=== PATIENT | female | born 1985 | race Caucasian/White ===

== ENCOUNTER 2022-06-05 21:51 | Emergency (ER) | payer OTHER ==
[2022-06-05 22:01] VITALS: BP 135/81; PULSE 104; RESP 18; TEMP 97; BMI 35.6
[2022-06-06 00:04] LABS: BASO % 0.5 % (0-2.0); EOS % 1.8 % (0-4.5); HEMATOCRIT 36.2 % (32.4-45.2); HEMOGLOBIN 12.2 GM/dL (10.7-15.3); LYMPH % 20.9 % (8-40); MCHC 33.8 g/dl (32.0-36.0); MEAN CELL VOLUME 79.9 fl (80-96); MEAN PLT VOLUME 7.6 fl (7.5-11.1); MONO % 6.8 % (3.8-10.2); PLATELET COUNT 393 10^3/uL (134-434); RBC 4.53 M/mm3 (3.60-5.2); RDW 14.6 % (11.6-15.6); WHITE BLOOD COUNT 10.5 K/mm3 (4.0-10.0)
[2022-06-06 00:25] LABS: ALBUMIN 3.4 g/dl (3.4-5.0); BLOOD UREA NITROGEN 7.8 mg/dL (7-18); CALCIUM 9.3 mg/dL (8.5-10.1)
[2022-06-06 00:27] LABS: CREATININE 0.5 mg/dL (0.55-1.3)
[2022-06-06 00:29] LABS: BILIRUBIN,TOTAL 0.2 mg/dL (0.2-1); TOT PROT 7.2 g/dl (6.4-8.2)
[2022-06-06 08:44] LABS: EPI CELLS 4 /uL (0-25.1); HYALINE CASTS 1 /uL (0-3.1); PH,URINE 6.5 (5.0-8.0); URINE APPEARANCE CLEAR; URINE BACTERIA 1733 /uL (0-1359); URINE BILIRUBIN NEGATIVE (NEGATIVE); URINE COLOR YELLOW; URINE GLUCOSE (UA) NEGATIVE (NEGATIVE); URINE KETONE NEGATIVE (NEGATIVE); URINE LEUK ESTERASE NEGATIVE (NEGATIVE); URINE NITRITE NEGATIVE (NEGATIVE); URINE PROTEIN NEGATIVE (NEGATIVE); URINE UROBILINOGEN 0.2 mg/dL (0.2-1.0); URINE WBC 41 /uL (0-25.8)
[2022-06-06 08:51] LABS: URINE RBC 25.6 /uL (0-23.9)
== END 2022-06-06 01:47 | disposition home or self-care (01) ==
LOC: JER 21:51
DX: O26.851 Spotting complicating pregnancy, first trimester (principal); Z3A.01 Less than 8 weeks gestation of pregnancy
CPT/HCPCS: 36415; 76817-TC; 80053; 81003; 84702; 85025; 86850; 86900; 86901; 99284-25

== ENCOUNTER 2022-12-28 18:00 | Inpatient (IN) | payer BC, OTHER ==
[2022-12-28] MEDS ORDERED: CITRIC ACID/SODIUM CITRATE 30 ML UNIT-DOSE CUP PO ONE (20:57)
[2022-12-28] MEDS ORDERED: ELECTROLYTE-148 SOLN 1,000 ML IV SCH (21:00)
[2022-12-28 21:11] LABS: BASO % 0.4 % (0-2.0); EOS % 0.6 % (0-4.5); HEMATOCRIT 29.7 % (32.4-45.2); HEMOGLOBIN 10.2 GM/dL (10.7-15.3); LYMPH % 21.4 % (8-40); MCH 24.8 pg (25.7-33.7); MCHC 34.2 g/dl (32.0-36.0); MEAN CELL VOLUME 72.7 fl (80-96); MEAN PLT VOLUME 8.7 fl (7.5-11.1); MONO % 7.9 % (3.8-10.2); NEUT % 69.7 % (42.8-82.8); PLATELET COUNT 291 10^3/uL (134-434); RBC 4.09 M/mm3 (3.60-5.2); RDW 16.5 % (11.6-15.6); WHITE BLOOD COUNT 12.3 K/mm3 (4.0-10.0)
[2022-12-28 21:21] LABS: INR 0.97 (0.83-1.09); PROTHROMBIN TIME (PATIENT) 11.3 SEC (9.7-13.0)
[2022-12-28 21:23] LABS: ACTIVATED PTT 28.3 SECONDS (25.2-36.5)
[2022-12-28 21:29] LABS: POTASSIUM 3.8 mmol/L (3.5-5.1)
[2022-12-28 21:30] LABS: CALCIUM 9.3 mg/dL (8.5-10.1)
[2022-12-28 21:31] LABS: BLOOD UREA NITROGEN 5.7 mg/dL (7-18)
[2022-12-28 21:34] LABS: CREATININE 0.5 mg/dL (0.55-1.3)
[2022-12-28] MEDS ORDERED: OXYTOCIN 30 UNITS in 0.9% NS 30 UNIT/500 ML INFUS.BAG IVPB SCH (21:45)
[2022-12-28] MEDS ORDERED: AMPICILLIN - 2 GM in SODIUM CHLORIDE 100 ML IVPB ONE ×2 (21:54→21:56)
[2022-12-28 22:16] VITALS: BMI 36.2
[2022-12-28] MEDS ORDERED: AMPICILLIN SODIUM 2 GM VIAL ONE (22:19)
[2022-12-28] MEDS ORDERED: OXYTOCIN 30 UNITS in 0.9% NS 30 UNIT/500 ML INFUS.BAG IVPB ONE (23:36)
[2022-12-29] MEDS ORDERED: AMPICILLIN SODIUM 1 GM VIAL ONE ×3 (01:49→09:26)
[2022-12-29] MEDS: AMPICILLIN - 1 GM in SODIUM CHLORIDE 100 ML IVPB SCH ×3 (02:11→09:35)
[2022-12-29 22:07] VITALS: RESP 18
[2022-12-30] MEDS ORDERED: FAMOTIDINE 20 MG TABLET PO SCH (10:15)
[2022-12-30 11:21] VITALS: BP 112/77; PULSE 101; TEMP 97.8
== END 2022-12-30 13:40 | disposition home or self-care (01) | DRG 833 ==
LOC: JDEL 18:00 → JLDR 20:20 → J3W 12-29 11:22
PROVIDERS: ADMIT Obstetrics & Gynecology; ATTEND Obstetrics & Gynecology
DX: O60.03 Preterm labor without delivery, third trimester (principal); N85.6 Intrauterine synechiae; Z3A.37 37 weeks gestation of pregnancy
CPT/HCPCS: 36415; 72196-TC; 80048; 82962; 85025; 85610; 85730; 86780; 86850; 86900; 86901; 86922; C1887; C9803-CS; U0003; U0005

== ENCOUNTER 2023-01-03 13:48 | Inpatient (IN) | payer BC ==
[2023-01-03 15:24] LABS: BASO % 0.3 % (0-2.0); EOS % 0.1 % (0-4.5); HEMATOCRIT 30.2 % (32.4-45.2); HEMOGLOBIN 9.9 GM/dL (10.7-15.3); LYMPH % 9.9 % (8-40); MCHC 32.9 g/dl (32.0-36.0); MEAN PLT VOLUME 7.9 fl (7.5-11.1); NEUT % 82.7 % (42.8-82.8); PLATELET COUNT 224 10^3/uL (134-434); RBC 4.14 M/mm3 (3.60-5.2); RDW 16.7 % (11.6-15.6); WHITE BLOOD COUNT 18.8 K/mm3 (4.0-10.0)
[2023-01-03] MEDS ORDERED: FENTANYL/BUPIVACAINE/NS/PF - PCEA - 50 ML DISP.SYRIN EP ONE (15:24)
[2023-01-03 15:33] LABS: INR 0.97 (0.83-1.09); PROTHROMBIN TIME (PATIENT) 11.2 SEC (9.7-13.0)
[2023-01-03] MEDS ORDERED: FENTANYL CITRATE/PF 50 MCG/ML VIAL ONE ×3 (15:33→18:54)
[2023-01-03] MEDS ORDERED: LIDO 2%/EPI 1:200000 PRESRVFRE (20 ML SDVIAL) ONE (15:33)
[2023-01-03] MEDS ORDERED: BUPIVACAINE HCL/PF 0.25% (2.5MG/ML) 10 ML VIAL ONE (15:33)
[2023-01-03 15:35] LABS: ACTIVATED PTT 26.7 SECONDS (25.2-36.5)
[2023-01-03 15:45] LABS: POTASSIUM 3.5 mmol/L (3.5-5.1)
[2023-01-03 15:46] LABS: CALCIUM 8.9 mg/dL (8.5-10.1)
[2023-01-03 15:47] LABS: BLOOD UREA NITROGEN 4.9 mg/dL (7-18)
[2023-01-03 15:51] LABS: CREATININE 0.5 mg/dL (0.55-1.3)
[2023-01-03] MEDS ORDERED: NALOXONE HCL 0.4 MG/ML VIAL IVPUSH PRN (16:00)
[2023-01-03] MEDS ORDERED: FENTANYL/BUPIVACAINE/NS/PF - PCEA - 50 ML DISP.SYRIN EP SCH (16:00)
[2023-01-03] MEDS ORDERED: OXYTOCIN 20 UNITS in 0.9% NS 20 UNIT/1,000 ML INFUS.BAG IV ONE (16:06)
[2023-01-03] MEDS ORDERED: SUCCINYLCHOLINE CHLORIDE 200 MG/10 ML SYRINGE ONE (16:58)
[2023-01-03] MEDS ORDERED: PROPOFOL 20 ML ONE (16:58)
[2023-01-03] MEDS ORDERED: ROCURONIUM BROMIDE 50 MG/5 ML VIAL ONE (17:16)
[2023-01-03] MEDS ORDERED: MIDAZOLAM HCL 2 MG/2 ML SINGLE DOSE VIAL ONE (17:19)
[2023-01-03] MEDS ORDERED: LIGASURE IMPACT TP ONE (17:23)
[2023-01-03 18:09] LABS: BASO % 0.5 % (0-2.0); EOS % 0.1 % (0-4.5); HEMATOCRIT 25.7 % (32.4-45.2); HEMOGLOBIN 8.4 GM/dL (10.7-15.3); LYMPH % 9.3 % (8-40); MCH 26.1 pg (25.7-33.7); MCHC 32.8 g/dl (32.0-36.0); MEAN CELL VOLUME 79.5 fl (80-96); MEAN PLT VOLUME 7.7 fl (7.5-11.1); MONO % 7.8 % (3.8-10.2); NEUT % 82.3 % (42.8-82.8); PLATELET COUNT 209 10^3/uL (134-434); RBC 3.22 M/mm3 (3.60-5.2); RDW 19.4 % (11.6-15.6); WHITE BLOOD COUNT 26.2 K/mm3 (4.0-10.0)
[2023-01-03 18:18] LABS: ARTERIAL BLD GAS O2 SATURATION 99.8 % (95-98); ARTERIAL BLOOD GAS BASE EXCESS -9.4 mmol/L (-2-2); ARTERIAL BLOOD GAS pH 7.252 (7.350-7.450); INR 1.06 (0.83-1.09); PROTHROMBIN TIME (PATIENT) 12.3 SEC (9.7-13.0)
[2023-01-03] MEDS ORDERED: morphine SULFATE/PF 1 MG/2 ML (2cc Syringe - QUVA) ONE (18:18)
[2023-01-03 18:20] LABS: ACTIVATED PTT 26.8 SECONDS (25.2-36.5)
[2023-01-03] MEDS ORDERED: KETAMINE HCL 500 MG/10 ML VIAL ONE (18:25)
[2023-01-03] MEDS ORDERED: SUGAMMADEX SODIUM 200 MG/2 ML VIAL ONE (18:31)
[2023-01-03] MEDS ORDERED: ceFAZolin SODIUM 1 GM VIAL ONE ×2 (18:34)
[2023-01-03 18:53] LABS: ANISOCYTOSIS 3+; MACROCYTOSIS 0
[2023-01-03 19:12] LABS: ARTERIAL BLD GAS O2 SATURATION 99.7 % (95-98); ARTERIAL BLOOD GAS BASE EXCESS -7.9 mmol/L (-2-2); ARTERIAL BLOOD GAS PO2 323.3 mmHg (80-100); ARTERIAL BLOOD GAS pH 7.287 (7.350-7.450)
[2023-01-03] MEDS: ELECTROLYTE-148 SOLN 1,000 ML IV SCH (20:00)
[2023-01-03] MEDS ORDERED: ONDANSETRON 4 MG/2 ML VIAL IVPUSH PRN (20:11)
[2023-01-03] MEDS ORDERED: HYDROmorphone *PCA* 10MG/50ML DISP.SYRIN PCA SCH (20:15)
[2023-01-03 20:38] LABS: BASO % 0.2 % (0-2.0); EOS % 0.1 % (0-4.5); HEMATOCRIT 30.7 % (32.4-45.2); HEMOGLOBIN 10.6 GM/dL (10.7-15.3); MCHC 34.5 g/dl (32.0-36.0); MEAN CELL VOLUME 81.2 fl (80-96); MONO % 6.2 % (3.8-10.2); NEUT % 88.5 % (42.8-82.8); PLATELET COUNT 158 10^3/uL (134-434); RBC 3.78 M/mm3 (3.60-5.2); RDW 18.3 % (11.6-15.6); WHITE BLOOD COUNT 23.7 K/mm3 (4.0-10.0)
[2023-01-03 21:02] VITALS: BMI 36.2
[2023-01-03 21:08] LABS: ALBUMIN 1.8 g/dl (3.4-5.0); BLOOD UREA NITROGEN 5.1 mg/dL (7-18); MAGNESIUM 1.6 mg/dL (1.8-2.4)
[2023-01-03] MEDS ORDERED: SIMETHICONE 80 MG TAB.CHEW (FP) PO PRN (21:10)
[2023-01-03] MEDS ORDERED: SENNOSIDES/DOCUSATE COMBO (SENNA PLUS) TABLET (UD) PO PRN (21:10)
[2023-01-03] MEDS ORDERED: BENZOCAINE 20% 57 GM BOTTLE TP PRN (21:10)
[2023-01-03] MEDS ORDERED: BENZOCAINE 28 GM HEMORRHOIDAL OINTMENT TP PRN (21:10)
[2023-01-03] MEDS ORDERED: ACETAMINOPHEN 325 MG TABLET (FP) PO PRN (21:10)
[2023-01-03] MEDS ORDERED: IBUPROFEN 800 MG/8 ML IJ IVPB PRN (21:10)
[2023-01-03] MEDS ORDERED: IBUPROFEN 600 MG TABLET (FP) PO PRN (21:10)
[2023-01-03] MEDS ORDERED: WITCH HAZEL 50% (TUCKS) 40 PAD/JAR PAD TP PRN (21:10)
[2023-01-03 21:11] LABS: CREATININE 0.5 mg/dL (0.55-1.3); PHOSPHOROUS 2.7 mg/dL (2.5-4.9)
[2023-01-03 21:12] LABS: BILIRUBIN,TOTAL 2.2 mg/dL (0.2-1); TOT PROT 4.6 g/dl (6.4-8.2)
[2023-01-03] MEDS ORDERED: MAGNESIUM SULFATE IN WATER 2 GM/50 ML IVPB IVPB ONE (21:15)
[2023-01-03] MEDS ORDERED: ceFAZolin 2 GRAM PREMIX BAG IVPB SCH (21:15)
[2023-01-03] MEDS ORDERED: OXYTOCIN 20 UNITS in 0.9% NS 20 UNIT/1,000 ML INFUS.BAG IV SCH (21:15)
[2023-01-03] MEDS ORDERED: HYDROmorphone HCl 2 MG/ML VIAL IVPUSH ONE (21:15)
[2023-01-03 21:34] LABS: CALCIUM 7.1 mg/dL (8.5-10.1)
[2023-01-03 21:46] LABS: ANISOCYTOSIS 2+; MACROCYTOSIS 0
[2023-01-03] MEDS: CEFAZOLIN SODIUM 2 GM in DEXTROSE 5%-WATER 100 ML IVPB SCH (21:52)
[2023-01-03] MEDS ORDERED: CHLORHEXIDINE GLUCONATE 4% CLEANSER FOR DECOLONIZATION TP SCH (22:00)
[2023-01-03] MEDS: ACETAMINOPHEN 1000 MG/100 ML BAG IVPB SCH (22:25)
[2023-01-03] MEDS: MUPIROCIN 2% TOPICAL OINTMENT FOR DECOLONIZATION NS SCH (23:15)
[2023-01-04] MEDS: ELECTROLYTE-148 SOLN 1,000 ML IV SCH (01:43)
[2023-01-04 02:39] LABS: HEMATOCRIT 27.3 % (32.4-45.2); HEMOGLOBIN 9.5 GM/dL (10.7-15.3); MCH 27.8 pg (25.7-33.7); MCHC 34.9 g/dl (32.0-36.0); MEAN CELL VOLUME 79.8 fl (80-96); MEAN PLT VOLUME 8.2 fl (7.5-11.1); PLATELET COUNT 172 10^3/uL (134-434); RBC 3.42 M/mm3 (3.60-5.2); RDW 17.4 % (11.6-15.6); WHITE BLOOD COUNT 20.5 K/mm3 (4.0-10.0)
[2023-01-04] MEDS: ACETAMINOPHEN 1000 MG/100 ML BAG IVPB SCH ×3 (06:07→21:23)
[2023-01-04] MEDS: CEFAZOLIN SODIUM 2 GM in DEXTROSE 5%-WATER 100 ML IVPB SCH ×3 (06:07→22:05)
[2023-01-04 07:30] LABS: HEMATOCRIT 26.6 % (32.4-45.2); HEMOGLOBIN 9.3 GM/dL (10.7-15.3); MCH 27.8 pg (25.7-33.7); MEAN CELL VOLUME 79.6 fl (80-96); MEAN PLT VOLUME 8.4 fl (7.5-11.1); PLATELET COUNT 193 10^3/uL (134-434); RBC 3.34 M/mm3 (3.60-5.2); RDW 17.4 % (11.6-15.6); WHITE BLOOD COUNT 20.4 K/mm3 (4.0-10.0)
[2023-01-04 07:53] LABS: POTASSIUM 4.2 mmol/L (3.5-5.1)
[2023-01-04 07:56] LABS: ALBUMIN 1.8 g/dl (3.4-5.0); BLOOD UREA NITROGEN 7.5 mg/dL (7-18); CALCIUM 7.4 mg/dL (8.5-10.1); MAGNESIUM 2.1 mg/dL (1.8-2.4)
[2023-01-04 07:59] LABS: CREATININE 0.4 mg/dL (0.55-1.3); PHOSPHOROUS 3.1 mg/dL (2.5-4.9)
[2023-01-04 08:01] LABS: BILIRUBIN,TOTAL 1.7 mg/dL (0.2-1); TOT PROT 4.5 g/dl (6.4-8.2)
[2023-01-04] MEDS ORDERED: oxyCODONE HCL 5 MG TABLET PO PRN ×2 (09:10)
[2023-01-04] MEDS: MUPIROCIN 2% TOPICAL OINTMENT FOR DECOLONIZATION NS SCH (09:18)
[2023-01-04] MEDS ORDERED: ROCURONIUM BROMIDE 50 MG/5 ML VIAL ONE (09:59)
[2023-01-04] MEDS ORDERED: MIDAZOLAM HCL 5 MG/1 ML Single Dose Vial ONE (09:59)
[2023-01-04] MEDS ORDERED: PRENATAL VITAMINS W/ FOLIC ACID TABLET (FP) PO SCH (10:00)
[2023-01-04 10:23] LABS: INR 1.04 (0.83-1.09); PROTHROMBIN TIME (PATIENT) 12.1 SEC (9.7-13.0)
[2023-01-04 10:26] LABS: ACTIVATED PTT 27.5 SECONDS (25.2-36.5)
[2023-01-04 11:27] LABS: ANISOCYTOSIS 1+; MACROCYTOSIS 0; TOXIC GRANULATION 2+
[2023-01-04 13:18] LABS: POC NITRAZINE POS
[2023-01-04] MEDS ORDERED: NALOXONE HCL 0.4 MG/ML VIAL IVPUSH PRN (14:48)
[2023-01-04] MEDS ORDERED: BENZOCAINE 20% 57 GM BOTTLE TP PRN (14:48)
[2023-01-04] MEDS ORDERED: BENZOCAINE 28 GM HEMORRHOIDAL OINTMENT TP PRN (14:48)
[2023-01-04] MEDS ORDERED: ELECTROLYTE-148 SOLN 1,000 ML IV SCH (14:48)
[2023-01-04] MEDS ORDERED: WITCH HAZEL 50% (TUCKS) 40 PAD/JAR PAD TP PRN (14:48)
[2023-01-04] MEDS ORDERED: HYDROmorphone *PCA* 10MG/50ML DISP.SYRIN PCA SCH (14:48)
[2023-01-04] MEDS ORDERED: SENNOSIDES/DOCUSATE COMBO (SENNA PLUS) TABLET (UD) PO PRN (14:48)
[2023-01-04] MEDS ORDERED: ONDANSETRON 4 MG/2 ML VIAL IVPUSH PRN (14:48)
[2023-01-04] MEDS: HYDROmorphone HCL 2 MG TABLET PO PRN (19:52)
[2023-01-04] MEDS ORDERED: BISACODYL 10 MG SUPP.RECT RC PRN ×2 (21:10)
[2023-01-04] MEDS ORDERED: MUPIROCIN 2% TOPICAL OINTMENT FOR DECOLONIZATION NS SCH (22:00)
[2023-01-04] MEDS ORDERED: CHLORHEXIDINE GLUCONATE 4% CLEANSER FOR DECOLONIZATION TP SCH (22:00)
[2023-01-05] MEDS: SIMETHICONE 80 MG TAB.CHEW (FP) PO PRN ×4 (01:37→23:29)
[2023-01-05] MEDS: IBUPROFEN 600 MG TABLET (FP) PO PRN (01:37)
[2023-01-05] MEDS: ACETAMINOPHEN 1000 MG/100 ML BAG IVPB SCH ×3 (05:38→21:07)
[2023-01-05] MEDS ORDERED: CEFAZOLIN SODIUM 2 GM VIAL ONE (05:54)
[2023-01-05] MEDS ORDERED: DEXTROSE 5%-WATER 100 ML IVPB ONE (05:55)
[2023-01-05] MEDS: CEFAZOLIN SODIUM 2 GM in DEXTROSE 5%-WATER 100 ML IVPB SCH ×2 (06:10→13:10)
[2023-01-05] MEDS: HYDROmorphone HCL 2 MG TABLET PO PRN ×3 (09:48→23:29)
[2023-01-05] MEDS: PRENATAL VITAMINS W/ FOLIC ACID TABLET (FP) PO SCH (09:48)
[2023-01-05] MEDS: guaiFENesin 600 MG TABLET.ER (FP) PO SCH (21:08)
[2023-01-05] MEDS: DOCUSATE SODIUM 100 MG CAPSULE (FP) PO PRN (23:29)
[2023-01-06] MEDS: ACETAMINOPHEN 1000 MG/100 ML BAG IVPB SCH ×3 (06:51→21:47)
[2023-01-06 07:26] LABS: BASO % 0.4 % (0-2.0); EOS % 1.4 % (0-4.5); HEMATOCRIT 24.9 % (32.4-45.2); HEMOGLOBIN 8.8 GM/dL (10.7-15.3); LYMPH % 20.2 % (8-40); MCH 28.6 pg (25.7-33.7); MCHC 35.5 g/dl (32.0-36.0); MEAN CELL VOLUME 80.7 fl (80-96); MEAN PLT VOLUME 7.4 fl (7.5-11.1); MONO % 5.4 % (3.8-10.2); NEUT % 72.6 % (42.8-82.8); PLATELET COUNT 242 10^3/uL (134-434); RBC 3.09 M/mm3 (3.60-5.2); RDW 18.2 % (11.6-15.6); WHITE BLOOD COUNT 12.3 K/mm3 (4.0-10.0)
[2023-01-06] MEDS: HYDROmorphone HCL 2 MG TABLET PO PRN ×3 (07:33→17:55)
[2023-01-06] MEDS: SIMETHICONE 80 MG TAB.CHEW (FP) PO PRN ×2 (09:45→20:42)
[2023-01-06] MEDS: PRENATAL VITAMINS W/ FOLIC ACID TABLET (FP) PO SCH (09:45)
[2023-01-06] MEDS: guaiFENesin 600 MG TABLET.ER (FP) PO SCH ×2 (09:45→21:44)
[2023-01-07] MEDS: ACETAMINOPHEN 1000 MG/100 ML BAG IVPB SCH (06:58)
[2023-01-07] MEDS: guaiFENesin 600 MG TABLET.ER (FP) PO SCH (09:26)
[2023-01-07] MEDS: PRENATAL VITAMINS W/ FOLIC ACID TABLET (FP) PO SCH (09:26)
[2023-01-07] MEDS: SIMETHICONE 80 MG TAB.CHEW (FP) PO PRN (09:26)
[2023-01-07] MEDS: DOCUSATE SODIUM 100 MG CAPSULE (FP) PO PRN (09:26)
[2023-01-07] MEDS: IBUPROFEN 600 MG TABLET (FP) PO PRN (09:27)
[2023-01-07 11:00] VITALS: BP 117/73; PULSE 96; RESP 18; TEMP 98.2
== END 2023-01-07 13:10 | disposition home or self-care (01) | DRG 768 ==
LOC: JDEL 13:48 → JLDR 15:00 → JICU 19:44 → J3W 01-04 14:36
PROVIDERS: ADMIT Obstetrics & Gynecology; ATTEND Obstetrics & Gynecology
PROC: 10E0XZZ Delivery of Products of Conception, External Approach (ICD-10-PCS; principal; 2023-01-03)
PROC: 0DNW0ZZ Release Peritoneum, Open Approach (ICD-10-PCS; 2023-01-03)
PROC: 0UT10ZZ Resection of Left Ovary, Open Approach (ICD-10-PCS; 2023-01-03)
PROC: 0UT90ZL Resection of Uterus, Supracervical, Open Approach (ICD-10-PCS; 2023-01-03)
PROC: 0UT70ZZ Resection of Bilateral Fallopian Tubes, Open Approach (ICD-10-PCS; 2023-01-03)
PROC: 30233K1 Transfusion of Nonautologous Frozen Plasma into Peripheral Vein, Percutaneous Approach (ICD-10-PCS; 2023-01-03)
PROC: 30233N1 Transfusion of Nonautologous Red Blood Cells into Peripheral Vein, Percutaneous Approach (ICD-10-PCS; 2023-01-03)
DX: O99.214 Obesity complicating childbirth (principal); Z37.0 Single live birth; E87.20 Acidosis, unspecified; O72.1 Other immediate postpartum hemorrhage; O73.0 Retained placenta without hemorrhage; O99.892 Other specified diseases and conditions complicating childbirth; N73.6 Female pelvic peritoneal adhesions (postinfective); D72.829 Elevated white blood cell count, unspecified; F41.9 Anxiety disorder, unspecified; G89.18 Other acute postprocedural pain; Z3A.38 38 weeks gestation of pregnancy
CPT/HCPCS: 36415; 36430; 36600; 74190-TC-FY; 80048; 80053; 82803; 83605; 83735; 83986-QW; 84100; 85025; 85027; 85384; 85610; 85730; 86780; 86922; 88302-TC; 88305-TC; 88307-TC; 93005; 93010; 94010; C9803-CS; P9017; P9058; U0003; U0005